=== PATIENT | female | born 1955 | race American Indian/Alaskan Native ===

== ENCOUNTER 2021-11-16 09:15 | Inpatient (IN) | payer OTHER, MEDICARE ==
[2021-11-16] MEDS ORDERED: FUROSEMIDE 100 MG/10 ML INJ IV ONE (09:24)
--- NOTE | 2021-11-16 09:29 | Emergency Department Report ---
ED Shortness of Breath HPI - General Chief Complaint: Dyspnea/Respdistress Stated Complaint: SHORTNESS OF BREATH Time Seen by Provider: 11/16/21 09:24 Source: EMS Mode of arrival: Stretcher Limitations: Other - History of Present Illness Initial Comments: Chief complaint: Shortness of breath HPI: This is a 36-year-old female presents in severe work of breathing. She has history of congestive heart failure with AICD. She has history of [place]. First r esponders found patient with severe work of breathing oxygen saturation 70%. Patient received CPAP, albuterol, 5 mg Solu-Medrol, 10 mg of Decadron in route. Patient unable to give further history due to severe work of breathing critical status. I spoke with son Eva in person. His phone number is [phone] Patient has a history of pneumonia, tobacco dependence, hypertension, congestive heart failure, coronary disease status post cardiac stent. She receives her care through the [facility] system. She has previously been [facility] She did receive 3 doses of Covid vaccine. Booster on yesterday. Complaint: shortness of breath -: Sudden, This morning Severity: severe Consistency: constant Improves With: nothing Worsens With: nothing Known History Of: congestive heart failure - Related Data Home Medications Medication Instructions Recorded Confirmed Last Taken Ascorbic Acid [Vitamin C] 1,000 mg PO TPN/PPN 08/24/16 08/24/16 Unknown Aspirin 81 mg PO DAILY 08/24/16 08/24/16 Unknown AtorvaSTATin [Lipitor] 40 mg PO DAILY 08/24/16 08/24/16 Unknown Cholecalciferol Vit D3 [Vitamin D3] 1,000 unit PO QDAY 08/24/16 08/24/16 Unknown Clopidogrel [Plavix] 75 mg PO QDAY 08/24/16 08/24/16 Unknown Losartan [Cozaar] 1 tab PO DAILY 08/24/16 08/24/16 Unknown carvediloL [Coreg] 12.5 mg PO BID 08/24/16 08/24/16 Unknown Allergies Allergy/AdvReac Type Severity Reaction Status Date / Time Penicillins AdvReac Hives Verified 08/24/16 14:33 IV dye AdvReac Angioedema Uncoded 08/24/16 14:33 ED Review of Systems ROS: Stated complaint: SHORTNESS OF BREATH Other details as noted in HPI Comment: Unobtainable due to pts medical conditions (Severe work of breathing critical status) ED Past Medical Hx - Past Medical History Previous Medical History?: Yes Hx Hypertension: Yes Additional medical history: Congestive heart failure - Surgical History Additional Surgical History: AICD - Social History Smoking Status: Current Every Day Smoker Substance Use Type: None - Medications Home Medications: Home Medications Medication Instructions Recorded Confirmed Last Taken Type Ascorbic Acid [Vitamin C] 1,000 mg PO TPN/PPN 08/24/16 08/24/16 Unknown History Aspirin 81 mg PO DAILY 08/24/16 08/24/16 Unknown History AtorvaSTATin [Lipitor] 40 mg PO DAILY 08/24/16 08/24/16 Unknown History Cholecalciferol Vit D3 [Vitamin D3] 1,000 unit PO QDAY 08/24/16 08/24/16 Unknown History Clopidogrel [Plavix] 75 mg PO QDAY 08/24/16 08/24/16 Unknown History Losartan [Cozaar] 1 tab PO DAILY 08/24/16 08/24/16 Unknown History carvediloL [Coreg] 12.5 mg PO BID 08/24/16 08/24/16 Unknown History ED Physical Exam - General Limitations: Other General appearance: alert, in distress, other (Tripod position, restless, severe work of breathing, accessory muscle use, clammy to touch) - Head Head exam: Present: atraumatic, normocephalic - Eye Eye exam: Present: normal appearance - ENT ENT exam: Present: mucous membranes moist - Neck Neck exam: Present: normal inspection, full ROM - Respiratory Respiratory exam: Present: respiratory distress, rales, rhonchi, accessory musc le use, prolonged expiratory - Cardiovascular Cardiovascular Exam: Present: normal rhythm, tachycardia, normal heart sounds. Absent: systolic murmur, diastolic murmur, rubs, gallop - GI/Abdominal GI/Abdominal exam: Present: soft, normal bowel sounds, other (Abdominal retraction). Absent: distended, tenderness, guarding, rebound - Extremities Exam Extremities exam: Present: normal inspection - Neurological Exam Neurological exam: Present: alert, oriented X3 - Psychiatric Psychiatric exam: Present: anxious - Skin Skin exam: Present: warm, intact, pallor, other (Clammy) ED Course Vital Signs 11/16/21 11/16/21 11/16/21 09:21 09:26 09:27 Temperature 98.2 F Pulse Rate 133 H 132 H 119 H Respiratory 40 H 49 H 49 H Rate Blood Pressure 134/87 Blood Pressure 166/111 [Right] O2 Sat by Pulse 67 L 95 97 Oximetry 11/16/21 11/16/21 11/16/21 09:29 09:30 09:45 Temperature Pulse Rate 118 H 121 H 114 H Respiratory 47 H 49 H 50 H Rate Blood Pressure 154/87 135/82 126/81 Blood Pressure [Right] O2 Sat by Pulse 95 96 97 Oximetry 11/16/21 11/16/21 11/16/21 10:00 10:07 10:16 Temperature Pulse Rate 101 H 93 H Respiratory 35 H 36 H 29 H Rate Blood Pressure 97/68 100/68 Blood Pressure [Right] O2 Sat by Pulse 97 97 99 Oximetry - Reevaluation(s) Reevaluation #1: 11/16/21 09:45 Heart rate decreased from 132 to 110 bpm, patient's oxygen saturation 96%, still with work of breathing FiO2 100% BiPAP 14 IPAP 12 ED Medical Decision Making - Lab Data Result diagrams: 11/16/21 09:48 11/16/21 09:48 - EKG Data -: EKG Interpreted by Me - EKG Data 11/16/21 12:21 EKG obtained 019 EKG interpreted by me Sinus tachycardia rate 115 bpm left axis deviation left bundle branch block no significant ST elevation nonspecific T wave pattern - Radiology Data Radiology results: image reviewed AP chest portable 1 view my personal interpretation Right lower lobe infiltrate cephalization, left lower lobe infiltrate interstitial alveolar edema pattern - Medical Decision Making Acute respiratory failure hypoxia acute CHF exacerbation versus community- acquired pneumonia. Infiltrate versus pulmonary edema right-sided predominant. Will cover with antibiotics. Patient has rhonchi on exam. Markedly improved with nitroglycerin infusion. Nitroglycerin infusion discontinued. Patient had appropriate diuresis with 100 mg of IV Lasix. Tachycardia resolved. Troponin negative. No elevation of CBC. BNP slightly elevated, patient does have hyponatremia likely due to outpatient diuretic use. D-dimer elevated however with lung exams and chest x-ray findings do not feel the CT angiogram needed at this time. Admitted to telemetry in stable improved condition. Critical Care Time: Yes Critical care time in (mins) excluding proc time.: 40 Critical care attestation.: If time is entered above; I have spent that time in minutes in the direct care of this critically ill patient, excluding procedure time. 40 minutes of critical care time excluding procedures were used in the care of the patient. I came immediately to the bedside upon patient's arrival. I obtained history from EMS at the bedside. I discussed treatment plan with the nursing team members. I reviewed electronic record. I kept the family members informed. I obtained history from son in person. Patient required multiple interventions and reassessments. ED Disposition Clinical Impression: Acute respiratory failure with hypoxia, Acute decompensated heart failure, Community acquired pneumonia, Tobacco dependence due to cigarettes Disposition: ADMITTED INPATIENT Is pt being admited?: Yes Does the pt Need Aspirin: No Condition: Stable Instructions: Bacterial Pneumonia (ED)
[2021-11-16] MEDS ORDERED: NITROGLYCERIN DRIP 50 MG/250 ML BOTTLE IV SCH (10:00)
[2021-11-16 10:01] LABS: Basophils % (Auto) 1.1 % (0.0-1.8); Eosinophils % (Auto) 0.4 % (0.0-4.3); Hematocrit 48.1 % (30.3-42.9); Hemoglobin 15.2 gm/dl (10.1-14.3); Lymphocytes # (Auto) 2.2 K/mm3 (1.2-5.4); Lymphocytes % (Auto) 21.3 % (13.4-35.0); Mean Corpuscular HGB Conc 32 % (30-34); Mean Corpuscular Volume 103 fl (79-97); Monocytes # (Auto) 0.2 K/mm3 (0.0-0.8); Platelet Count 187 K/mm3 (140-440); Red Blood Count 4.67 M/mm3 (3.65-5.03); Red Cell Distribution Width 15.1 % (13.2-15.2)
[2021-11-16 10:02] LABS: Basophils # (Auto) 0.1 K/mm3 (0.0-0.1)
[2021-11-16 10:19] LABS: Alanine Aminotransferase 40 units/L (7-56); BUN/Creatinine Ratio 26; Blood Urea Nitrogen 26 mg/dL (7-17); Calcium 9.2 mg/dL (8.4-10.2); Hemolysis Index 60
[2021-11-16] MEDS ORDERED: cefTRIAXone/NS 2 GM/100 ML 2 GM/100 ML BAG IV ONE (11:40)
[2021-11-16] MEDS ORDERED: AZITHROMYCIN/NS 500 MG/250 ML 500 MG/250 ML BAG IV ONE (11:40)
--- NOTE | 2021-11-16 12:05 | Electrocardiograph Report ---
[facility] Test Date: 2021-11-16 Test Time: 09:19:52 Pat Name: ANDRZEJ SORIA Department: Room: Gender: F Medical Chief Technician: MARIANO : 1955 Requested By: MILY WOLFF Order Number: [id number] Reading MD: Basil Hernandez Measurements Intervals [place] Rate: 114 P: 96 MT: 115 QRS: -34 QRSD: 154 T: 125 QT: 353 QTc: 486 Interpretive Statements Sinus tachycardia Ventricular premature complex Probable left atrial enlargement Left bundle branch block No previous ECG available for comparison Electronically Signed On 11-16-2021 12:04:38 EST by Basil Hernandez
[2021-11-16] MEDS ORDERED: ACETAMINOPHEN 325 MG TAB PO PRN (12:37)
--- NOTE | 2021-11-16 12:42 | History and Physical Report ---
History of Present Illness Date of examination: 11/16/21 Date of admission: 11/16/21 12:21 Chief complaint: Increasing shortness of breath since yesterday History of present illness: 36-year-old female with history of hypertension, congestive heart failure, hyperlipidemia and AICD with history of [place] comes in by EMS for severe shortness of breath. 1 day duration. When the first responders arrived patient was severely short of breath and increased work of breathing. Oxygen saturation were 70%. Patient was put on CPAP and was given Decadron 10 mg and albuterol. Not clear whether she was given nebulizer treatment or MDI. No fever or chills. Patient was given booster shot yesterday after previous to regular code vaccines. The type of vaccine--whether Pfizer or Moderna. Patient is not on Lasix. In the emergency room patient continued to be hypoxic and was placed on BiPAP no loss of smell or taste. - Past Medical History --Previous Medical History?: Yes --Hypertension: Yes --Additional medical history: Congestive heart failure - Surgical History Additional Surgical History: AICD - Social History --Smoking Status: Current Every Day Smoker --Substance Use Type: None - Medications Home Medications: Home Medications Medication Instructions Recorded Confirmed Last Taken Type Ascorbic Acid [Vitamin C] 1,000 mg PO TPN/PPN 08/24/16 08/24/16 Unknown History Aspirin 81 mg PO DAILY 08/24/16 08/24/16 Unknown History AtorvaSTATin [Lipitor] 40 mg PO DAILY 08/24/16 08/24/16 Unknown History Cholecalciferol Vit D3 [Vitamin D3] 1,000 unit PO QDAY 08/24/16 08/24/16 Unknown History Clopidogrel [Plavix] 75 mg PO QDAY 08/24/16 08/24/16 Unknown History Losartan [Cozaar] 1 tab PO DAILY 08/24/16 08/24/16 Unknown History carvediloL [Coreg] 12.5 mg PO BID 08/24/16 08/24/16 Unknown History Review of Systems ROS: Stated complaint: SHORTNESS OF BREATH Other details as noted in HPI Comment: Unobtainable due to pts medical conditions (Severe work of breathing critical status) Medications and Allergies Allergies Allergy/AdvReac Type Severity Reaction Status Date / Time Penicillins AdvReac Hives Verified 11/16/21 15:06 IV dye AdvReac Angioedema Uncoded 08/24/16 14:33 Home Medications Medication Instructions Recorded Confirmed Last Taken Type Ascorbic Acid [Vitamin C] 1,000 mg PO TPN/PPN 08/24/16 11/17/21 Unknown History Aspirin 81 mg PO DAILY 08/24/16 11/17/21 Unknown History AtorvaSTATin [Lipitor] 40 mg PO DAILY 08/24/16 11/17/21 Unknown History Cholecalciferol Vit D3 [Vitamin D3] 1,000 unit PO QDAY 08/24/16 11/17/21 Unknown History Clopidogrel [Plavix] 75 mg PO QDAY 08/24/16 11/17/21 Unknown History Losartan [Cozaar] 1 tab PO DAILY 08/24/16 11/17/21 Unknown History carvediloL [Coreg] 12.5 mg PO BID 08/24/16 11/17/21 Unknown History Active Meds: Active Medications Azithromycin (Zithromax/Ns) 500 mg in 250 mls @ 250 mls/hr IV ONCE ONE; Protocol Stop: 11/16/21 12:39 Last Admin: 11/16/21 12:10 Dose: 250 mls/hr Documented by: Exam - Constitutional Vitals: Temp Pulse Resp BP Pulse Ox 98.2 F 93 H 29 H 100/68 99 11/16/21 09:26 11/16/21 10:16 11/16/21 10:16 11/16/21 10:16 11/16/21 10:16 General appearance: Present: severe distress, well-nourished - EENT Eyes: Present: PERRL ENT: hearing intact, clear oral mucosa - Neck Neck: Present: supple, normal ROM - Respiratory Respiratory effort: normal Respiratory: bilateral: rales (Bilateral), wheezing (Scattered) - Cardiovascular Heart rate: 98 Rhythm: regular Heart Sounds: Present: S1 & S2. Absent: rub, click - Extremities Extremities: pulses symmetrical, No edema Peripheral Pulses: within normal limits - Abdominal General gastrointestinal: Present: soft, non-tender, non-distended, normal bowel sounds Female genitourinary: Present: normal - Integumentary Integumentary: Present: clear, warm, dry - Musculoskeletal Musculoskeletal: gait normal, strength equal bilaterally - Psychiatric Psychiatric: appropriate mood/affect, intact judgment & insight - Neurologic Neurologic: CNII-XII intact, moves all extremities HEART Score - HEART Score History: Moderately suspicious Age: > 65 Risk factors: 1-2 risk factors Troponin: Troponin T < 0.010 ng/mL (0.00-0.029) 11/16/21 09:48 Troponin: 1-3x normal limit - Critical Actions Critical Actions: 4-6 pts:12-16.6% risk of adverse cardiac event. Should be admitted Results - Labs CBC & Chem 7: 11/16/21 09:48 11/16/21 09:48 Labs: Laboratory Last Values WBC 10.3 K/mm3 (4.5-11.0) 11/16/21 09:48 RBC 4.67 M/mm3 (3.65-5.03) 11/16/21 09:48 Hgb 15.2 gm/dl (10.1-14.3) H 11/16/21 09:48 Hct 48.1 % (30.3-42.9) H 11/16/21 09:48 MCV 103 fl (79-97) H 11/16/21 09:48 MCH 33 pg (28-32) H 11/16/21 09:48 MCHC 32 % (30-34) 11/16/21 09:48 RDW 15.1 % (13.2-15.2) 11/16/21 09:48 Plt Count 187 K/mm3 (140-440) 11/16/21 09:48 Lymph % (Auto) 21.3 % (13.4-35.0) 11/16/21 09:48 [place] % (Auto) 2.0 % (0.0-7.3) 11/16/21 09:48 Eos % (Auto) 0.4 % (0.0-4.3) 11/16/21 09:48 Baso % (Auto) 1.1 % (0.0-1.8) 11/16/21 09:48 Lymph # (Auto) 2.2 K/mm3 (1.2-5.4) 11/16/21 09:48 [place] # (Auto) 0.2 K/mm3 (0.0-0.8) 11/16/21 09:48 Eos # (Auto) 0.0 K/mm3 (0.0-0.4) 11/16/21 09:48 Baso # (Auto) 0.1 K/mm3 (0.0-0.1) 11/16/21 09:48 Seg Neutrophils % 75.2 % (40.0-70.0) H 11/16/21 09:48 Seg Neutrophils # 7.7 K/mm3 (1.8-7.7) 11/16/21 09:48 D-Dimer 6057.71 ng/mlDDU (0-234) H 11/16/21 09:48 Sodium 131 mmol/L (137-145) L 11/16/21 09:48 Potassium 4.5 mmol/L (3.6-5.0) 11/16/21 09:48 Chloride 97.9 mmol/L (98-107) L 11/16/21 09:48 Carbon Dioxide 15 mmol/L (22-30) L 11/16/21 09:48 Anion Gap 23 mmol/L 11/16/21 09:48 BUN 26 mg/dL (7-17) H 11/16/21 09:48 Creatinine 1.0 mg/dL (0.6-1.2) 11/16/21 09:48 Estimated GFR > 60 ml/min 11/16/21 09:48 BUN/Creatinine Ratio 26 % 11/16/21 09:48 Glucose 349 mg/dL (65-100) H 11/16/21 09:48 Calcium 9.2 mg/dL (8.4-10.2) 11/16/21 09:48 Total Bilirubin 0.20 mg/dL (0.1-1.2) 11/16/21 09:48 AST 33 units/L (5-40) 11/16/21 09:48 ALT 40 units/L (7-56) 11/16/21 09:48 Alkaline Phosphatase 94 units/L (35-129) 11/16/21 09:48 Troponin T < 0.010 ng/mL (0.00-0.029) 11/16/21 09:48 NT-Pro-B Natriuret Pep 1024 pg/mL (0-900) H 11/16/21 10:18 Total Protein 7.2 g/dL (6.3-8.2) 11/16/21 09:48 Albumin 4.0 g/dL (3.9-5) 11/16/21 09:48 Albumin/Globulin Ratio 1.3 % 11/16/21 09:48 Short CBC 12/19/21 Range/Units 09:48 WBC 10.3 (4.5-11.0) K/mm3 Hgb 15.2 H (10.1-14.3) gm/dl Hct 48.1 H (30.3-42.9) % Plt Count 187 (140-440) K/mm3 BMP 11/16/21 09:48 Sodium 131 L Potassium 4.5 Chloride 97.9 L Carbon Dioxide 15 L BUN 26 H Creatinine 1.0 Glucose 349 H Calcium 9.2 Cardiac Enzymes 11/16/21 Range/Units 09:48 Troponin T < 0.010 (0.00-0.029) ng/mL Liver Function 11/16/21 Range/Units 09:48 Total Bilirubin 0.20 (0.1-1.2) mg/dL AST 33 (5-40) units/L ALT 40 (7-56) units/L Alkaline Phosphatase 94 (35-129) units/L Albumin 4.0 (3.9-5) g/dL - Imaging and Cardiology EKG: report reviewed (Sinus tachycardia no acute ST-T wave changes) Chest x-ray: report reviewed Imaging and Cardiology: Chest x-ray Bilateral parenchymal disease much greater on the right than the left. Differential diagnosis includes asymmetric edema, bilateral pneumonia and aspiration. Assessment and Plan Advance Directives: Yes (Full code) VTE prophylaxis?: Chemical Plan of care discussed with patient/family: Yes - Patient Problems (1) SIRS (systemic inflammatory response syndrome) Current Visit: Yes Status: Acute Plan to address problem: Patient is a high D-dimer of 6057 ferritin of 487.8 and LDH of 305. CRP was not done. Clinical picture consistent with Sirs and differential diagnosis of coronavirus infection. Patient to get CT angiogram of the chest to rule out pulmonary embolism (2) Acute respiratory failure with hypoxia Current Visit: Yes Status: Acute Plan to address problem: Patient in severe respiratory distress Titrate oxygen intake BiPAP if necessary Intubation if necessary Differential diagnosis of CHF versus acute respiratory distress syndrome sec ondary to Covid (3) Community acquired pneumonia Current Visit: Yes Status: Acute Qualifiers: Lung location: unspecified part of lung Plan to address problem: Patient initiated on IV Zithromax and IV Rocephin To stop antibiotics if procalcitonin is normal (4) Person under investigation for COVID-19 Current Visit: Yes Status: Acute Plan to address problem: Coronavirus PCR in a.m. 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 Plan to address problem: BNP is only thousand 24 IV Lasix 40 mg every 24 hours Daily intake output Daily weights Echocardiogram for ejection fraction (6) Elevated d-dimer Current Visit: Yes Status: Acute Plan to address problem: CT angiogram of the chest to rule out pulmonary embolism (7) Hypertension Current Visit: Yes Status: Chronic Qualifiers: Hypertension type: primary hypertension Qualified Code(s): I10 - Essential (primary) hypertension Plan to address problem: Continue antihypertensives and adjust medication (8) Hyperlipidemia Current Visit: Yes Status: Acute Qualifiers: Hyperlipidemia type: mixed hyperlipidemia Qualified Code(s): E78.2 - Mixed hyperlipidemia Plan to address problem: Continue statins (9) Coronary artery disease Current Visit: Yes Status: Chronic Qualifiers: Coronary Disease-Associated Artery/Lesion type: [place] artery [place] vs. transplanted heart: [place] heart Plan to address problem: Continue Plavix (10) DVT prophylaxis Current Visit: Yes Status: Acute Plan to address problem: On Lovenox and GI prophylaxis (11) Advance care planning Current Visit: Yes Status: Acute Plan to address problem: Disease education conducted, care plan discussed, diagnosis discussed and patient acknowledges understanding with care plan +30 minutes
--- NOTE | 2021-11-16 12:43 | XRay Report ---
CHEST 1 VIEW 11/16/2021 9:49 AM INDICATION / CLINICAL INFORMATION: Severe hypoxia. Dyspnea. COMPARISON: None available. FINDINGS: SUPPORT DEVICES: There is a dual chamber left subclavian ICD with the tips of the pacing leads overly ing the right atrial appendage and right ventricular apex. HEART / MEDIASTINUM: The heart size is at the upper limits of normal. There is prominence of the cent ral pulmonary vessels. LUNGS / PLEURA: There is moderately severe patchy parenchymal disease throughout the right lung, more prominent inferiorly. There is mild to moderate patchy parenchymal disease in the left mid to lower lung. No large pleural effusion is present. No pneumothorax. ADDITIONAL FINDINGS: No significant additional findings. IMPRESSION: Bilateral parenchymal disease, much greater on the right than the left. Differential diag nosis includes asymmetric edema, bilateral pneumonia and aspiration. Signer Name: Yusef Galeano MD Signed: 11/16/2021 12:39 PM Workstation Name: [id number]
[2021-11-16] MEDS ORDERED: NON-FORMULARY EACH (Losartan [Cozaar] 100 MG Tablet) PO SCH (12:45)
[2021-11-16] MEDS ORDERED: NON-FORMULARY EACH (Ascorbic Acid [Vitamin C] 1,000 MG Tablet) PO SCH (12:45)
[2021-11-16] MEDS: ASPIRIN 81 MG TAB CHEW PO SCH (12:54)
[2021-11-16] MEDS: carvediloL 12.5 MG TAB PO SCH ×2 (12:55→23:26)
[2021-11-16] MEDS: CLOPIDOGREL 75 MG TAB PO SCH (12:55)
[2021-11-16] MEDS: FAMOTIDINE 20 MG TAB PO SCH ×2 (12:55→23:26)
[2021-11-16] MEDS: CHOLECALCIFEROL (VIT D3) 1000 UNIT (25 mcg) TAB PO SCH (12:55)
[2021-11-16] MEDS ORDERED: MORPHINE 2 MG/1 ML INJ IV PRN (14:00)
[2021-11-16] MEDS ORDERED: ONDANSETRON 4 MG/2 ML INJ IV PRN (14:00)
[2021-11-16 14:21] LABS: C-Reactive Protein 0.6 mg/dL (0.00-1.30)
[2021-11-16] MEDS: HEPARIN 5,000 UNIT/1 ML VIAL SUB-Q SCH ×2 (14:36→23:26)
[2021-11-16] MEDS: ASCORBIC ACID 500 MG TAB PO SCH (14:38)
[2021-11-16] MEDS: LOSARTAN 50 MG TAB PO SCH (14:38)
[2021-11-16] MEDS ORDERED: dexAMETHasone 4 MG/ML VIAL IV SCH (23:00)
[2021-11-16] MEDS: FUROSEMIDE 40 MG/4 ML INJ IV SCH (23:32)
[2021-11-17] MEDS ORDERED: SODIUM CHLORIDE 0.9% 1000 ML 1,000 ML IV ONE (05:20)
[2021-11-17 08:37] LABS: Basophils % (Auto) 0.1 % (0.0-1.8); Hematocrit 38.9 % (30.3-42.9); Hemoglobin 12.8 gm/dl (10.1-14.3); Lymphocytes # (Auto) 0.7 K/mm3 (1.2-5.4); Lymphocytes % (Auto) 8.1 % (13.4-35.0); Mean Corpuscular HGB Conc 33 % (30-34); Mean Corpuscular Volume 101 fl (79-97); Monocytes # (Auto) 0.4 K/mm3 (0.0-0.8); Monocytes % (Auto) 4.2 % (0.0-7.3); Platelet Count 158 K/mm3 (140-440); Red Blood Count 3.87 M/mm3 (3.65-5.03); Red Cell Distribution Width 14.5 % (13.2-15.2)
[2021-11-17 09:27] LABS: Albumin 3.6 g/dL (3.9-5); Calcium 8.9 mg/dL (8.4-10.2)
[2021-11-17] MEDS: INSULIN LISPRO 100 UNIT/ML SUB-Q SCH ×4 (09:48→21:19)
[2021-11-17] MEDS ORDERED: dexAMETHasone 4 MG/ML VIAL IV SCH (10:00)
--- NOTE | 2021-11-17 11:52 | Progress Note ---
Assessment and Plan - Patient Problems (1) SIRS (systemic inflammatory response syndrome) Current Visit: Yes Status: Acute Plan to address problem: Patient is a high D-dimer of 6057 ferritin of 487.8 and LDH of 305. CRP was not done. Clinical picture consistent with Sirs and differential diagnosis of coronavirus infection. Patient to get CT angiogram of the chest to rule out pulmonary embolism Covid test is negative (2) Acute respiratory failure with hypoxia Current Visit: Yes Status: Acute Plan to address problem: Patient in severe respiratory distress Titrate oxygen intake BiPAP if necessary Intubation if necessary Differential diagnosis of CHF versus acute respiratory distress syndrome secondary to Covid Ejection fraction 15% on echocardiogram (3) Acute exacerbation of CHF (congestive heart failure) Current Visit: Yes Status: Acute Qualifiers: Heart failure type: combined systolic and diastolic Qualified Code(s): I50.43 - Acute on chronic combined systolic (congestive) and diastolic (congestive) heart failure Plan to address problem: BNP is only 1024 IV Lasix 40 mg every 24 hours Daily intake output Daily weights Echocardiogram for ejection fraction Cardiology consult requested (4) Community acquired pneumonia Current Visit: Yes Status: Acute Qualifiers: Lung location: unspecified part of lung Plan to address problem: Patient initiated on IV Zithromax and IV Rocephin To stop antibiotics if procalcitonin is normal Antibiotics to be discontinued if procalcitonin is normal (5) Person under investigation for COVID-19 Current Visit: Yes Status: Acute Plan to address problem: Covid negative On room air today (6) Elevated d-dimer Current Visit: Yes Status: Acute Plan to address problem: CT angiogram of the chest to rule out pulmonary embolism (7) Hypertension Current Visit: Yes Status: Chronic Qualifiers: Hypertension type: primary hypertension Qualified Code(s): I10 - Essential (primary) hypertension Plan to address problem: Continue antihypertensives and adjust medication (8) Hyperlipidemia Current Visit: Yes Status: Acute Qualifiers: Hyperlipidemia type: mixed hyperlipidemia Qualified Code(s): E78.2 - Mixed hyperlipidemia Plan to address problem: Continue statins (9) Coronary artery disease Current Visit: Yes Status: Chronic Qualifiers: Coronary Disease-Associated Artery/Lesion type: [place] artery [place] vs. transplanted heart: [place] heart Plan to address problem: Continue Plavix (10) DVT prophylaxis Current Visit: Yes Status: Acute Plan to address problem: On Lovenox and GI prophylaxis (11) Advance care planning Current Visit: Yes Status: Acute Plan to address problem: Disease education conducted, care plan discussed, diagnosis discussed and patient acknowledges understanding with care plan +30 minutes Subjective Date of service: 11/17/21 Principal diagnosis: Acute respiratory failure with hypoxia, follow case osorio I again Interval history: 36-year-old female with history of hypertension, congestive heart failure, hyperlipidemia and AICD with history of [place] comes in by EMS for severe shortness of breath. 1 day duration. When the first responders arrived patient was severely short of breath and increased work of breathing. Oxygen saturation were 70%. Patient was put on CPAP and was given Decadron 10 mg and albuterol. Not clear whether she was given nebulizer treatment or MDI. No fever or chills. Patient was given booster shot yesterday after previous to regular code vaccines. The type of vaccine--whether Pfizer or Moderna. Patient is not on Lasix. In the emergency room patient continued to be hypoxic and was placed on BiPAP no loss of smell or taste. 11/17/2021 Patient is less short of breath Covid is negative Echocardiogram shows ejection fraction of 15% CTA chest is pending because patient is allergic to contrast dye Patient to get CTA chest tomorrow after preparation for allergies Objective - Constitutional Vitals: Vital Signs - 12hr 11/17/21 11/17/21 11/17/21 00:00 00:01 00:09 Temperature Pulse Rate 89 85 Respiratory 24 21 Rate Blood Pressure 111/73 107/69 O2 Sat by Pulse 94 95 93 Oximetry 11/17/21 11/17/21 11/17/21 00:15 00:29 00:31 Temperature Pulse Rate 88 88 Respiratory 21 22 Rate Blood Pressure 106/58 91/52 O2 Sat by Pulse 92 94 93 Oximetry 11/17/21 11/17/21 11/17/21 01:34 01:45 02:11 Temperature 99.0 F Pulse Rate 82 88 Respiratory 16 21 16 Rate Blood Pressure 91/42 O2 Sat by Pulse 93 96 Oximetry 11/17/21 11/17/21 11/17/21 02:21 02:31 05:10 Temperature 98.0 F Pulse Rate 85 83 Respiratory 19 16 Rate Blood Pressure 80/45 107/85 75/45 O2 Sat by Pulse 96 97 92 Oximetry General appearance: Present: no acute distress, well-nourished - EENT Eyes: PERRL, EOM intact ENT: hearing intact, clear oral mucosa Ears: bilateral: normal - Neck Neck: supple, normal ROM - Respiratory Respiratory effort: normal Respiratory: bilateral: rales (Scattered), rhonchi (Scattered) - Breasts Breasts: normal - Cardiovascular Heart rate: 78 Rhythm: regular Heart Sounds: Present: S1 & S2. Absent: gallop, rub Extremities: no ischemia, pulses intact, No edema, normal color, Full ROM - Gastrointestinal General gastrointestinal: Present: soft, non-tender, non-distended, normal bowel sounds Rectal Exam: deferred - Genitourinary Female genitourinary: normal - Integumentary Integumentary: clear, warm, dry - Musculoskeletal Musculoskeletal: 1, strength equal bilaterally - Neurologic Neurologic: moves all extremities - Psychiatric Psychiatric: memory intact, appropriate mood/affect, intact judgment & insight - Labs CBC & Chem 7: 11/17/21 06:49 11/17/21 06:49 Labs: Abnormal lab results 11/16/21 11/16/21 11/16/21 Range/Units 13:14 13:14 13:14 MCV (79-97) fl MCH (28-32) pg Lymph % (Auto) (13.4-35.0) % Lymph # (Auto) (1.2-5.4) K/mm3 Seg Neutrophils % (40.0-70.0) % D-Dimer 6155.75 H (0-234) ng/mlDDU Carbon Dioxide (22-30) mmol/L BUN (7-17) mg/dL Creatinine (0.6-1.2) mg/dL Glucose (65-100) mg/dL POC Glucose (70-105) mg/dL Ferritin 487.8 H (10.0-200.0) ng/mL Lactate Dehydrogenase 305 H (91-180) units/L Total Protein (6.3-8.2) g/dL Albumin (3.9-5) g/dL 11/17/21 11/17/21 11/17/21 Range/Units 06:49 06:49 08:32 MCV 101 H (79-97) fl MCH 33 H (28-32) pg Lymph % (Auto) 8.1 L (13.4-35.0) % Lymph # (Auto) 0.7 L (1.2-5.4) K/mm3 Seg Neutrophils % 87.6 H (40.0-70.0) % D-Dimer (0-234) ng/mlDDU Carbon Dioxide 19 L (22-30) mmol/L BUN 38 H (7-17) mg/dL Creatinine 1.4 H (0.6-1.2) mg/dL Glucose 173 H (65-100) mg/dL POC Glucose 146 H (70-105) mg/dL Ferritin (10.0-200.0) ng/mL Lactate Dehydrogenase (91-180) units/L Total Protein 5.8 L (6.3-8.2) g/dL Albumin 3.6 L (3.9-5) g/dL HEART Score - HEART Score Age: > 65 Risk factors: 1-2 risk factors Troponin: Troponin T < 0.010 ng/mL (0.00-0.029) 11/16/21 09:48 Troponin: 1-3x normal limit - Critical Actions Critical Actions: 4-6 pts:12-16.6% risk of adverse cardiac event. Should be admitted
[2021-11-17] MEDS: cefTRIAXone/NS 2 GM/100 ML 2 GM/100 ML BAG IV SCH (12:04)
[2021-11-17] MEDS: ASCORBIC ACID 500 MG TAB PO SCH (12:05)
[2021-11-17] MEDS: HEPARIN 5,000 UNIT/1 ML VIAL SUB-Q SCH ×2 (12:05→21:13)
[2021-11-17] MEDS: CLOPIDOGREL 75 MG TAB PO SCH (12:06)
[2021-11-17] MEDS: FAMOTIDINE 20 MG TAB PO SCH ×2 (12:06→21:12)
[2021-11-17] MEDS: LOSARTAN 50 MG TAB PO SCH (12:06)
[2021-11-17] MEDS: carvediloL 12.5 MG TAB PO SCH ×2 (12:06→21:12)
[2021-11-17] MEDS: ASPIRIN 81 MG TAB CHEW PO SCH (12:07)
[2021-11-17] MEDS: CHOLECALCIFEROL (VIT D3) 1000 UNIT (25 mcg) TAB PO SCH (13:26)
[2021-11-17] MEDS: AZITHROMYCIN/NS 500 MG/250 ML 500 MG/250 ML BAG IV SCH (13:59)
[2021-11-17] MEDS ORDERED: predniSONE 20 MG TAB PO STA (15:57)
[2021-11-17] MEDS ORDERED: predniSONE 50 MG TAB PO SCH (16:00)
[2021-11-17] MEDS ORDERED: predniSONE 20 MG TAB PO ONE (23:00)
[2021-11-17] MEDS: FUROSEMIDE 40 MG/4 ML INJ IV SCH (23:08)
[2021-11-18] MEDS ORDERED: predniSONE 20 MG TAB PO ONE (05:00)
[2021-11-18] MEDS ORDERED: diphenhydrAMINE 50 MG/ML VIAL IV ONE (06:00)
[2021-11-18] MEDS: INSULIN LISPRO 100 UNIT/ML SUB-Q SCH ×5 (07:30→21:53)
--- NOTE | 2021-11-18 09:42 | Cat Scan Report ---
CTA CHEST WITH CONTRAST INDICATION / CLINICAL INFORMATION: No evidence of breath. TECHNIQUE: Axial CT images were obtained through the chest after injection of Omnipaque 350, 100 cc I V contrast. 3 plane MIP and/or 3D reconstructions were produced. All CT scans at this location are pe rformed using CT dose reduction for ALARA by means of automated exposure control. COMPARISON: Chest x-ray 11/16/2021 FINDINGS: PULMONARY ARTERIES: No pulmonary emboli. THORACIC AORTA: No significant abnormality. HEART: No significant abnormality. CORONARY ARTERY CALCIFICATION: Moderate. MEDIASTINUM / DARSHAN: No significant abnormality. PLEURA: No pleural effusion. No pneumothorax. LUNGS: Mild dependent mosaic attenuation and mild groundglass opacity. Well-circumscribed mass right middle lobe medially measuring 3.1 cm. Edema has improved with mild residual. ADDITIONAL FINDINGS: None. UPPER ABDOMEN: No acute findings. SKELETAL STRUCTURES: No significant osseous abnormality. IMPRESSION: 1. No CT evidence for pulmonary embolism. 2. Improving edema with mild residual changes of atelectasis, vascular congestion and air trapping. 3. Indeterminate mass right middle lobe medially. This is an unknown finding, PET/CT is recommended f or more complete evaluation. Signer Name: Artem Young MD Signed: 11/18/2021 9:37 AM Workstation Name: [id number]
[2021-11-18] MEDS: cefTRIAXone/NS 2 GM/100 ML 2 GM/100 ML BAG IV SCH (10:00)
--- NOTE | 2021-11-18 10:09 | Discharge Summary ---
Providers - Providers Date of Admission: 11/16/21 12:21 Attending physician: DESI BHATT MD 11/18/21 06:29 Consult to Physician [CONS] Routine Comment: Consulting Provider: IBRAHIMA DOWNING Physician Instructions: Reason For Exam: CHF exacerbation Primary care physician: FIELD RECRUITER Hospitalization Reason for admission: shortness of breath Condition: Stable Hospital course: 36-year-old female with history of hypertension, congestive heart failure, hyperlipidemia and AICD with history of [place] comes in by EMS for severe shortness of breath. 1 day duration. When the first responders arrived patient was severely short of breath and increased work of breathing. Oxygen saturation were 70%. Patient was put on CPAP and was given Decadron 10 mg and albuterol. Not clear whether she was given nebulizer treatment or MDI. No fever or chills. Patient was given booster shot yesterday after previous to regular code vaccines. The type of vaccine--whether Pfizer or Moderna. Patient is not on Lasix. In the emergency room patient continued to be hypoxic and was placed on BiPAP no loss of smell or taste. 11/17/2021 Patient is less short of breath Covid is negative Echocardiogram shows ejection fraction of 15% CTA chest is pending because patient is allergic to contrast dye Patient to get CTA chest tomorrow after preparation for allergies 11/18: Patient seen and examined this morning doing very well no new complaints. I did discuss with her that she likely had a flash pulmonary edema secondary to acute systolic and diastolic combined congestive heart failure following her booster COVID shock which likely secondary incident but she will follow up with her primary care physician and see if she needs an building performance specialist to determine if she has any other underlying allergy. Her Covid test was negative she is on room air doing well Borja will be discontinued prior to discharge. She is requesting some antibiotics for discharge I did in educate her on the role of antibiotics which I do not see a role in her case although there may be an underlying pneumonia but she is afebrile without leukocytosis she verbalized understanding I will hold onto the antibiotics unless absolutely needed . (1) SIRS (systemic inflammatory response syndrome) Current Visit: Yes Status: Acute Plan to address problem: Patient is a high D-dimer of 6057 ferritin of 487.8 and LDH of 305. CRP was not done. Clinical picture consistent with Sirs and differential diagnosis of coronavirus infection. Patient to get CT angiogram of the chest to rule out pulmonary embolism Covid test is negative (2) Acute respiratory failure with hypoxia Current Visit: Yes Status: Acute Plan to address problem: Patient in severe respiratory distress Titrate oxygen intake BiPAP if necessary Intubation if necessary Differential diagnosis of CHF versus acute respiratory distress syndrome secondary to Covid Ejection fraction 15% on echocardiogram (3) Acute exacerbation of CHF (congestive heart failure) Current Visit: Yes Status: Acute Qualifiers: Heart failure type: combined systolic and diastolic Qualified Code(s): I50.43 - Acute on chronic combined systolic (congestive) and diastolic (congestive) heart failure Plan to address problem: BNP is only 1024 IV Lasix 40 mg every 24 hours Daily intake output Daily weights Echocardiogram for ejection fraction Cardiology consult requested (4) Community acquired pneumonia Current Visit: Yes Status: Acute Qualifiers: Lung location: unspecified part of lung Plan to address problem: Patient initiated on IV Zithromax and IV Rocephin To stop antibiotics if procalcitonin is normal Antibiotics to be discontinued if procalcitonin is normal (5) Person under investigation for COVID-19 Current Visit: Yes Status: Acute Plan to address problem: Covid negative On room air today (6) Elevated d-dimer Current Visit: Yes Status: Acute Plan to address problem: CT angiogram of the chest to rule out pulmonary embolism (7) Hypertension Current Visit: Yes Status: Chronic Qualifiers: Hypertension type: primary hypertension Qualified Code(s): I10 - Essential (primary) hypertension Plan to address problem: Continue antihypertensives and adjust medication (8) Hyperlipidemia Current Visit: Yes Status: Acute Qualifiers: Hyperlipidemia type: mixed hyperlipidemia Qualified Code(s): E78.2 - Mixed hyperlipidemia Plan to address problem: Continue statins (9) Coronary artery disease Current Visit: Yes Status: Chronic Qualifiers: Coronary Disease-Associated Artery/Lesion type: [place] artery [place] vs. transplanted heart: [place] heart Plan to address problem: Continue Plavix (10) DVT prophylaxis Current Visit: Yes Status: Acute Plan to address problem: On Lovenox and GI prophylaxis (11) Advance care planning Current Visit: Yes Status: Acute Plan to address problem: Disease education conducted, care plan discussed, diagnosis discussed and patient acknowledges understanding with care plan +30 minutes Disposition: 01 HOME / SELF CARE / HOMELESS Final Discharge Diagnosis (Prints w/discharge instructions): Acute combined systolic and diastolic congestive heart failure with flash pulmonary edema resulting in acute hypoxic respiratory failure Time spent for discharge: 35-minute Core Measure Documentation - Palliative Care Palliative Care/ Comfort Measures: Not Applicable - Core Measures Any of the following diagnoses?: heart failure - Heart Failure Discharge Requirements JEANCARLOS/ARB for LVSD if EF <40%: Yes Beta david at discharge: Yes Exam - Physical Exam Narrative exam: VITAL SIGNS: Reviewed. GENERAL: The patient appears normally developed, Vital signs as documented. HEAD: No signs of head trauma. EYES: Pupils are equal. Extraocular motions intact. EARS: Hearing grossly intact. MOUTH: Oropharynx is normal. NECK: No adenopathy, no JVD. CHEST: Chest with clear breath sounds bilaterally. No wheezes, rales, or rhonchi. CARDIAC: Regular rate and rhythm. S1 and S2, without murmurs, gallops, or rubs. VASCULAR: No Edema. Peripheral pulses normal and equal in all extremities. ABDOMEN: Soft, non tender and non distended. No rebound or guarding, and no masses palpated. Bowel Sounds normal. MUSCULOSKELETAL: Good range of motion of all major joints. Extremities without clubbing, cyanosis. Trace edema bilateral. NEUROLOGIC EXAM: Alert and oriented x 3 No focal sensory or strength deficits. Speech normal. Follows commands. PSYCHIATRIC: Mood normal. SKIN: detail exam as documented in skin assessment - Constitutional Vitals: Temp Pulse Resp BP Pulse Ox 98.5 F 80 20 104/65 93 11/18/21 04:42 11/18/21 04:42 11/18/21 04:42 11/18/21 04:42 11/18/21 04:42 Plan Activity: advance as tolerated, fall precautions Diet: low salt Special Instructions: restrict fluid intake to (1000/day), record daily BP diary Care Plan Goals: Follow with primary miller head in 3 to 7 days Must see primary care doctor in 3 to 7 days Please continue Lasix at the dose recommended by the primary care physician if different from what we have prescribed Follow up with: PRIMARY CARE, [Primary Care Provider] - 3-5 Days Forms: Work/School Release Form Prescriptions: Furosemide [Lasix TAB] 40 mg PO QDAY #30 tablet
[2021-11-18] MEDS: CLOPIDOGREL 75 MG TAB PO SCH (10:26)
[2021-11-18] MEDS: CHOLECALCIFEROL (VIT D3) 1000 UNIT (25 mcg) TAB PO SCH (10:29)
[2021-11-18] MEDS: ASCORBIC ACID 500 MG TAB PO SCH (10:29)
[2021-11-18] MEDS: ASPIRIN 81 MG TAB CHEW PO SCH (10:29)
[2021-11-18] MEDS: FAMOTIDINE 20 MG TAB PO SCH ×2 (10:29→21:52)
[2021-11-18] MEDS: HEPARIN 5,000 UNIT/1 ML VIAL SUB-Q SCH ×2 (10:29→21:53)
[2021-11-18] MEDS: AZITHROMYCIN/NS 500 MG/250 ML 500 MG/250 ML BAG IV SCH (10:32)
--- NOTE | 2021-11-18 12:25 | Consultation ---
History of Present Illness Consult date: 11/18/21 Consult reason: congestive heart failure History of present illness: The patient is a 66-year-old woman with a history of chronic congestive heart failure, who receives her usual care at the [facility] in [facility]. She has an indwelling dual-chamber cardiac defibrillator. She presented to the hospital at this time with shortness of breath, hypoxemia with an oxygen saturation of 67%. EKG showed a sinus tachycardia with left bundle branch block. Chest x-ray showed bilateral interstitial infiltrates, worse on the right lung. She was admitted and placed on diuresis, this morning looks and feels better. An echocardiogram done shows a left ventricular ejection fraction less than 15 to 20%. Cardiology consultation is requested for assistance in management of her acute on chronic systolic heart failure. Past History Past Medical History: heart failure, hypertension Medications and Allergies Allergies Allergy/AdvReac Type Severity Reaction Status Date / Time Penicillins AdvReac Hives Verified 11/16/21 15:06 IV dye AdvReac Angioedema Uncoded 08/24/16 14:33 Home Medications Medication Instructions Recorded Confirmed Last Taken Type Ascorbic Acid [Vitamin C] 1,000 mg PO TPN/PPN 08/24/16 11/17/21 Unknown History Aspirin 81 mg PO DAILY 08/24/16 11/17/21 Unknown History AtorvaSTATin [Lipitor] 40 mg PO DAILY 08/24/16 11/17/21 Unknown History Cholecalciferol Vit D3 [Vitamin D3 1,000 unit PO QDAY 08/24/16 11/17/21 Unknown History 1,000 UNIT TAB] Clopidogrel [Plavix] 75 mg PO QDAY 08/24/16 11/17/21 Unknown History Losartan [Cozaar] 1 tab PO DAILY 08/24/16 11/17/21 Unknown History carvediloL [Coreg] 12.5 mg PO BID 08/24/16 11/17/21 Unknown History Furosemide [Lasix TAB] 40 mg PO QDAY #30 tablet 11/18/21 Unknown Rx Active Meds: Active Medications Acetaminophen (Acetaminophen 325 Mg Tab) 650 mg PO Q4H PRN PRN Reason: Pain MILD(1-3)/Fever >100.5/NICHOLS Ascorbic Acid (Ascorbic Acid 500 Mg Tab) 1,000 mg PO QDAY STEFANI Last Admin: 11/18/21 10:29 Dose: 1,000 mg Documented by: Aspirin (Aspirin 81 Mg Tab Chew) 81 mg PO DAILY [facility] Last Admin: 11/18/21 10:29 Dose: 81 mg Documented by: Atorvastatin Calcium (Atorvastatin 40 Mg Tab) 40 mg PO DAILY [facility] Last Admin: 11/18/21 10:29 Dose: 40 mg Documented by: Carvedilol (Carvedilol 12.5 Mg Tab) 12.5 mg PO BID [facility] Last Admin: 11/17/21 21:12 Dose: 12.5 mg Documented by: Cholecalciferol (Cholecalciferol (Vit D3) 1000 Unit (25 Mcg) Tab) 1,000 unit PO QDAY [facility] Last Admin: 11/18/21 10:29 Dose: 1,000 unit Documented by: Clopidogrel Bisulfate (Clopidogrel 75 Mg Tab) 75 mg PO QDAY [facility] Last Admin: 11/18/21 10:26 Dose: 75 mg Documented by: Famotidine (Famotidine 20 Mg Tab) 20 mg PO BID [facility] Last Admin: 11/18/21 10:29 Dose: 20 mg Documented by: Furosemide (Furosemide 40 Mg/4 Ml Inj) 40 mg IV Q24H [facility] Last Admin: 11/17/21 23:08 Dose: 40 mg Documented by: Heparin Sodium (Porcine) (Heparin 5,000 Unit/1 Ml Vial) 5,000 unit SUB-Q Q12HR [facility] Last Admin: 11/18/21 10:29 Dose: 5,000 unit Documented by: Azithromycin (Zithromax/Ns) 500 mg in 250 mls @ 250 mls/hr IV Q24HR [facility]; Protocol Stop: 11/20/21 10:59 Last Admin: 11/18/21 10:32 Dose: 250 mls/hr Documented by: Ceftriaxone Sodium (Rocephin/Ns 2 Gm/100 Ml) 2 gm in 100 mls @ 200 mls/hr IV Q24HR [facility]; Protocol Stop: 11/20/21 10:29 Last Admin: 11/18/21 10:00 Dose: 200 mls/hr Documented by: Insulin Human Lispro (Insulin Lispro 100 Unit/Ml) 0 unit SUB-Q ACHS [facility]; Protoc ol Last Admin: 11/18/21 07:30 Dose: Not Given Documented by: Losartan Potassium (Losartan 50 Mg Tab) 100 mg PO QDAY [facility] Last Admin: 11/17/21 12:06 Dose: Not Given Documented by: Morphine Sulfate (Morphine 2 Mg/1 Ml Inj) 2 mg IV Q4H PRN PRN Reason: Pain, Moderate (4-6) Ondansetron HCl (Ondansetron 4 Mg/2 Ml Inj) 4 mg IV Q8H PRN PRN Reason: Nausea And Vomiting Sodium Chloride (Sodium Chloride 0.9% 10 Ml Flush Syringe) 10 ml IV BID STEFANI Last Admin: 11/17/21 21:13 Dose: 10 ml Documented by: Sodium Chloride (Sodium Chloride 0.9% 10 Ml Flush Syringe) 10 ml IV PRN PRN PRN Reason: LINE FLUSH Review of Systems Cardiovascular: orthopnea, shortness of breath, no chest pain, no palpitations, no rapid/irregular heart beat, no edema, no syncope, no lightheadedness Physical Examination Vital Signs Pulse Resp BP Pulse Ox 133 H 40 H 166/111 67 L 11/16/21 09:21 11/16/21 09:21 11/16/21 09:21 11/16/21 09:21 General appearance: no acute distress HEENT: Positive: PERRL Neck: Positive: neck supple Cardiac: Positive: Reg Rate and Rhythm Lungs: Positive: Decreased Breath Sounds Neuro: Positive: Grossly Intact Abdomen: Positive: Soft Female genitourinary: deferred Skin: Positive: Clear Extremities: Absent: edema Results 11/17/21 06:49 11/17/21 06:49 EKG interpretations - Telemetry EKG Rhythm: Sinus Tachycardia (With left bundle branch block) Assessment and Plan - Patient Problems (1) Acute on chronic systolic heart failure Current Visit: Yes Status: Acute Plan to address problem: Continue aggressive heart failure treatment with guideline directed medical therapy including optimal diuretics.
--- NOTE | 2021-11-18 13:59 | Vascular Lab Report ---
DUPLEX DOPPLER LOWER EXTREMITY VEINS, BILATERAL INDICATION / CLINICAL INFORMATION: Pain and swelling in the lower extremities. TECHNIQUE: Duplex doppler imaging was performed through the veins of both lower extremities using samaria ous compression and other maneuvers. COMPARISON: None available. FINDINGS: RIGHT COMMON FEMORAL VEIN: Negative. RIGHT FEMORAL VEIN: Negative. RIGHT POPLITEAL VEIN: Negative. RIGHT CALF VEINS: Negative. LEFT COMMON FEMORAL VEIN: Negative. LEFT FEMORAL VEIN: Negative. LEFT POPLITEAL VEIN: Negative. LEFT CALF VEINS: Negative. ADDITIONAL FINDINGS: None. IMPRESSION: 1. No sonographic evidence for DVT in either lower extremity. Scribed by: Rona Fernandez RDMS, RVT Scribed: 11/18/2021 11:54 AM I have reviewed the images, agree with this report, and edited this report as needed. Signer Name: Adair Lu MD Signed: 11/18/2021 1:55 PM Workstation Name: [id number]
[2021-11-18] MEDS: carvediloL 12.5 MG TAB PO SCH ×2 (14:17→21:52)
[2021-11-18] MEDS: LOSARTAN 50 MG TAB PO SCH (14:18)
[2021-11-18] MEDS: FUROSEMIDE 40 MG/4 ML INJ IV SCH (23:53)
[2021-11-19 06:34] VITALS: BP 97/60
[2021-11-19] MEDS: INSULIN LISPRO 100 UNIT/ML SUB-Q SCH ×2 (07:30→11:30)
--- NOTE | 2021-11-19 08:40 | Discharge Summary ---
Providers - Providers Date of Admission: 11/16/21 12:21 Attending physician: DESI BHATT MD 11/18/21 06:29 Consult to Physician [CONS] Routine Comment: Consulting Provider: IBRAHIMA DOWNING Physician Instructions: Reason For Exam: CHF exacerbation Primary care physician: ROLLOFF DRIVER Hospitalization Reason for admission: Shortness of BREATH Condition: Stable Hospital course: 36-year-old female with history of hypertension, congestive heart failure, hyperlipidemia and AICD with history of ME comes in by EMS for severe shortness of breath. 1 day duration. When the first responders arrived patient was severely short of breath and increased work of breathing. Oxygen saturation were 70%. Patient was put on CPAP and was given Decadron 10 mg and albuterol. Not clear whether she was given nebulizer treatment or MDI. No fever or chills. Patient was given booster shot yesterday after previous to regular code vaccines. The type of vaccine--whether Pfizer or Moderna. Patient is not on Lasix. In the emergency room patient continued to be hypoxic and was placed on BiPAP no loss of smell or taste. 11/17/2021 Patient is less short of breath Covid is negative Echocardiogram shows ejection fraction of 15% CTA chest is pending because patient is allergic to contrast dye Patient to get CTA chest tomorrow after preparation for allergies 11/18: Patient seen and examined this morning doing very well no new complaints. 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 Her Covid test was negative she is on room air doing well Borja will be discontinued prior to discharge. She is requesting some antibiotics for discharge I did in educate her on the role of antibiotics which I do not see a role in her case although there may be an underlying pneumonia but she is afebrile without leukocytosis she verbalized understanding I will hold onto the antibiotics unless absolutely needed . Patient states that her driller hand has seen that before and had planned a PET/CT outpatient for her Addendum entered and electronically signed by DESI BHATT MD 11/18/21 12:17: WILL HOLD DISCHARGE FOR FURTHER DIURESIS AND POSSIBLE DISCHARGE TOMORROW. She will follow up Pulmonary to evaluate Middle lobe mass as she will need a PET CT for further evaluation outpatient 11/19: Patient overnight did well did not have any shortness of breath chest x- ray repeated this morning still shows opacities for which the patient is being treated with oral antibiotic therapy has no fever. She is clinically stable for discharge she as reported earlier has a planned PET CT scan outpatient which will follow. She is to return to the hospital if any fever develops and follow- up with her primary care physician and also cardiology (1) SIRS (systemic inflammatory response syndrome) Current Visit: Yes Status: Acute Plan to address problem: Patient is a high D-dimer of 6057 ferritin of 487.8 and LDH of 305. CRP was not done. Clinical picture consistent with Sirs and differential diagnosis of coronavirus infection. Patient to get CT angiogram of the chest to rule out pulmonary embolism Covid test is negative (2) Acute respiratory failure with hypoxia Current Visit: Yes Status: Acute Plan to address problem: Patient in severe respiratory distress Titrate oxygen intake BiPAP if necessary Intubation if necessary Differential diagnosis of CHF versus acute respiratory distress syndrome secondary to Covid Ejection fraction 15% on echocardiogram (3) Acute exacerbation of CHF (congestive heart failure) Current Visit: Yes Status: Acute Qualifiers: Heart failure type: combined systolic and diastolic Qualified Code(s): I50.43 - Acute on chronic combined systolic (congestive) and diastolic ( congestive) heart failure Plan to address problem: BNP is only 1024 IV Lasix 40 mg every 24 hours Daily intake output Daily weights Echocardiogram for ejection fraction Cardiology consult requested (4) Community acquired pneumonia Current Visit: Yes Status: Acute Qualifiers: Lung location: unspecified part of lung Plan to address problem: Patient initiated on IV Zithromax and IV Rocephin To stop antibiotics if procalcitonin is normal Antibiotics to be discontinued if procalcitonin is normal (5) Person under investigation for COVID-19 Current Visit: Yes Status: Acute Plan to address problem: Covid negative On room air today (6) Elevated d-dimer Current Visit: Yes Status: Acute Plan to address problem: CT angiogram of the chest to rule out pulmonary embolism (7) Hypertension Current Visit: Yes Status: Chronic Qualifiers: Hypertension type: primary hypertension Qualified Code(s): I10 - Essential (primary) hypertension Plan to address problem: Continue antihypertensives and adjust medication (8) Hyperlipidemia Current Visit: Yes Status: Acute Qualifiers: Hyperlipidemia type: mixed hyperlipidemia Qualified Code(s): E78.2 - Mixed hyperlipidemia Plan to address problem: Continue statins (9) Coronary artery disease Current Visit: Yes Status: Chronic Qualifiers: Coronary Disease-Associated Artery/Lesion type: [place] artery [place] vs. transplanted heart: [place] heart Plan to address problem: Continue Plavix (10) DVT prophylaxis Current Visit: Yes Status: Acute Plan to address problem: On Lovenox and GI prophylaxis (11) Advance care planning Current Visit: Yes Status: Acute Plan to address problem: Disease education conducted, care plan discussed, diagnosis discussed and patient acknowledges understanding with care plan +30 minutes Disposition: 06 HOME HEALTH CARE SERVICE Final Discharge Diagnosis (Prints w/discharge instructions): Acute combined systolic and diastolic congestive heart failure with flash pulmonary edema r esulting in acute hypoxic respiratory failure Time spent for discharge: 35 MINS Core Measure Documentation - Palliative Care Palliative Care/ Comfort Measures: Not Applicable - Core Measures Any of the following diagnoses?: heart failure - Heart Failure Discharge Requirements JEANCARLOS/ARB for LVSD if EF <40%: Yes Beta david at discharge: Yes Exam - Physical Exam Narrative exam: VITAL SIGNS: Reviewed. GENERAL: The patient appears normally developed, Vital signs as documented. HEAD: No signs of head trauma. EYES: Pupils are equal. Extraocular motions intact. EARS: Hearing grossly intact. MOUTH: Oropharynx is normal. NECK: No adenopathy, no JVD. CHEST: Chest with clear breath sounds bilaterally. No wheezes, rales, or rhonchi. CARDIAC: Regular rate and rhythm. S1 and S2, without murmurs, gallops, or rubs. VASCULAR: No Edema. Peripheral pulses normal and equal in all extremities. ABDOMEN: Soft, non tender and non distended. No rebound or guarding, and no masses palpated. Bowel Sounds normal. MUSCULOSKELETAL: Good range of motion of all major joints. Extremities without clubbing, cyanosis. Trace edema bilateral. NEUROLOGIC EXAM: Alert and oriented x 3 No focal sensory or strength deficits. Speech normal. Follows commands. PSYCHIATRIC: Mood normal. SKIN: detail exam as documented in skin assessment - Constitutional Vitals: Temp Pulse Resp BP Pulse Ox 98.6 F 75 18 97/60 98 11/19/21 05:30 11/19/21 05:30 11/19/21 05:30 11/19/21 05:30 11/19/21 05:30 Plan Activity: advance as tolerated, fall precautions Diet: low salt Special Instructions: restrict fluid intake to (1000CC/DAY), record daily weights Care Plan Goals: Follow with primary performance tester in 3 to 7 days Must see primary care doctor in 3 to 7 days Please continue Lasix at the dose recommended by the primary care physician if different from what we have prescribed Follow up with: PRIMARY CARE, [Primary Care Provider] - 3-5 Days Forms: Work/School Release Form Prescriptions: Furosemide [Lasix TAB] 40 mg PO QDAY #30 tablet levoFLOXacin [Levaquin] 750 mg PO QDAY #5 tablet
--- NOTE | 2021-11-19 08:41 | XRay Report ---
CHEST 1 VIEW 11/19/2021 7:08 AM INDICATION / CLINICAL INFORMATION: shortness of breath. COMPARISON: 11/16/2021 FINDINGS: SUPPORT DEVICES: Stable, satisfactory device positioning. HEART / MEDIASTINUM: No significant abnormality. LUNGS / PLEURA: Diffuse opacities in bilateral lungs have improved since prior examination. Increased densities in the right middle lobe adjacent right cardiac border persist No pneumothorax. Signer Name: Moy Conn MD Signed: 11/19/2021 8:37 AM Workstation Name: [id number]
[2021-11-19] MEDS ORDERED: FUROSEMIDE 40 MG/4 ML INJ IV NR (09:30)
--- NOTE | 2021-11-19 09:52 | Progress Note ---
Assessment and Plan - Patient Problems (1) Acute on chronic systolic heart failure Current Visit: Yes Status: Acute Plan to address problem: LVEF 15-20% by echo this presentation. Continue medical management for chronic systolic heart failure. Otherwise, conservative cardiac management. Subjective Date of service: 11/19/21 Principal diagnosis: Acute respiratory failure with hypoxia, follow case osorio I again Interval history: Patient appears comfortable. She has no cardiac complaints. She is planned for discharge home today. Objective Vital Signs Temp Pulse Resp BP BP Pulse Ox 11/19/21 05:30 98.6 F 75 18 97/60 98 11/19/21 01:00 16 96 11/18/21 21:52 87 100/56 11/18/21 19:30 97.8 F 87 16 100/56 96 11/18/21 17:45 87 11/18/21 16:34 98.0 F 80 16 109/72 96 11/18/21 14:18 97 H 129/87 11/18/21 14:17 97 H 129/87 11/18/21 13:00 97 11/18/21 12:35 98.3 F 97 H 16 129/87 94 11/18/21 10:12 96 - Physical Examination General: No Apparent Distress HEENT: Positive: PERRL Neck: Positive: neck supple Cardiac: Positive: Reg Rate and Rhythm Lungs: Positive: Decreased Breath Sounds Neuro: Positive: Grossly Intact Abdomen: Positive: Soft Extremities: Absent: edema
[2021-11-19] MEDS: cefTRIAXone/NS 2 GM/100 ML 2 GM/100 ML BAG IV SCH (10:00)
[2021-11-19] MEDS: CLOPIDOGREL 75 MG TAB PO SCH (10:00)
[2021-11-19] MEDS: AZITHROMYCIN/NS 500 MG/250 ML 500 MG/250 ML BAG IV SCH (10:00)
[2021-11-19] MEDS: LOSARTAN 50 MG TAB PO SCH (11:21)
[2021-11-19] MEDS: ASCORBIC ACID 500 MG TAB PO SCH (11:21)
[2021-11-19] MEDS: FAMOTIDINE 20 MG TAB PO SCH (11:22)
[2021-11-19] MEDS: CHOLECALCIFEROL (VIT D3) 1000 UNIT (25 mcg) TAB PO SCH (11:22)
[2021-11-19] MEDS: ASPIRIN 81 MG TAB CHEW PO SCH (11:22)
[2021-11-19] MEDS: carvediloL 12.5 MG TAB PO SCH (11:22)
[2021-11-19] MEDS: HEPARIN 5,000 UNIT/1 ML VIAL SUB-Q SCH (11:23)
== END 2021-11-19 12:37 | disposition home or self-care (01) | DRG 193 ==
LOC: ED 09:15 → 4A 12:21 → 3A 22:57
PROVIDERS: ADMIT Internal Medicine; ATTEND Internal Medicine
PROC: 5A09357 Assistance with Respiratory Ventilation, Less than 24 Consecutive Hours, Continuous Positive Airway Pressure (ICD-10-PCS; principal; 2021-11-16)
DX: J18.9 Pneumonia, unspecified organism (principal); J96.01 Acute respiratory failure with hypoxia; I50.43 Acute on chronic combined systolic (congestive) and diastolic (congestive) heart failure; R65.10 Systemic inflammatory response syndrome (SIRS) of non-infectious origin without acute organ dysfunction; I11.0 Hypertensive heart disease with heart failure; F17.210 Nicotine dependence, cigarettes, uncomplicated; I25.10 Atherosclerotic heart disease of native coronary artery without angina pectoris; Z20.822 Contact with and (suspected) exposure to COVID-19; E78.2 Mixed hyperlipidemia
CPT/HCPCS: 36415; 71045; 71275; 80053; 82728; 82962; 83615; 83880; 84145; 84484; 85025; 85379; 86140; 87040; 93005; 93306; 93970; 99291; G0378; J3490; Q0162; Q9967; J0456; J0696; J1100; J1200; J1644; J1815; J1940; J7030; J7512; U0003